=== PATIENT | male | born 1985 | race Two or more races ===

== ENCOUNTER 2021-03-13 09:53 | Outpatient (CLI) | payer OTHER | END 2021-03-13 14:45 | disposition home or self-care (01) | LOC: PPH VACUNA 09:53 | DX: Z23 Encounter for immunization (principal) ==

== ENCOUNTER 2021-04-03 08:00 | Outpatient (CLI) | payer OTHER | END 2021-04-03 08:30 | disposition home or self-care (01) | LOC: PPH VACUNA 08:00 | DX: Z23 Encounter for immunization (principal) ==